=== PATIENT | female | born 1990 | race Caucasian/White ===

== ENCOUNTER 2021-04-24 13:49 | Emergency (ER) | payer OTHER ==
[~2021-04-24 13:49] MED LIST: AZITHROMYCIN500 MG PO; BENTYL 20MG TAB20 MG PO; OMNICEF 300 MG300 MG PO; ZOFRAN4 MG PO
[2021-04-24 14:49] LABS: HEMOGLOBIN 13.1 gm/dl (12.3-15.3); RED BLOOD COUNT 4.37 M/UL (4.00-5.10); WHITE BLOOD COUNT 9.1 K/UL (4.5-11.0)
[2021-04-24 15:06] LABS: BUN/CREATININE RATIO 15 (0-10)
== END 2021-04-24 20:30 | disposition home or self-care (01) ==
LOC: ER1 13:49
PROVIDERS: Physician Assistant
DX: R55 Syncope and collapse (principal); S80.02XA Contusion of left knee, initial encounter; F17.200 Nicotine dependence, unspecified, uncomplicated; W19.XXXA Unspecified fall, initial encounter
CPT/HCPCS: 70450; 71045; 73564; 80053; 82550; 82553; 83874; 84484; 84703; 85025; 85379; 93005; 99284; J7030